=== PATIENT | female | born 2000 | race Asian ===

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

== ENCOUNTER 2022-07-13 20:23 | Emergency (ER) | payer BC, OTHER ==
[~2022-07-13] VITALS: Ht 160 cm; Wt 88.9 kg
[2022-07-13 20:52] VITALS: BP 145/86
--- NOTE | 2022-07-13 21:55 | NUR ---
Pt is here for laceration when trying to wash dishes and one on the plated fell and and tried to pick it up and cutleft wrist.
[2022-07-14 00:33] VITALS: BP 142/86
--- NOTE | 2022-07-14 00:33 | NUR ---
Patient discharged with v/s stable. Written and verbal after care instructions given and explained. Patient verbalized understanding. Ambulatory with steady gait. All questions addressed prior to discharge. Advised to follow up with PMD.
== END 2022-07-14 00:33 | disposition home or self-care (01) ==
LOC: MED 20:23
DX: S61.512A Laceration without foreign body of left wrist, initial encounter (principal); Z98.890 Other specified postprocedural states; Z91.013 Allergy to seafood; W26.8XXA Contact with other sharp object(s), not elsewhere classified, initial encounter; Y93.G1 Activity, food preparation and clean up; Y92.89 Other specified places as the place of occurrence of the external cause; Y99.8 Other external cause status
CPT/HCPCS: 12001; 90471; 90715; 99283